=== PATIENT | male | born 1965 | race Caucasian/White ===

== ENCOUNTER 2018-06-28 11:22 | Emergency (ER) | payer BC ==
[2018-06-28] MEDS ORDERED: RAPID SEQUENCE INTUBATION KIT NR ONE (11:26)
[2018-06-28] MEDS ORDERED: KETAMINE HCL 200 MG/20 ML VIAL ONE (11:27)
[2018-06-28] MEDS ORDERED: ROCURONIUM BROMIDE 50 MG/5 ML VIAL IV ONE (11:28)
[2018-06-28] MEDS ORDERED: KETAMINE HCL 200 MG/20 ML VIAL IVPUSH ONE (11:28)
[2018-06-28] MEDS ORDERED: AMIODARONE HCL 150 MG/3 ML VIAL ONE ×2 (11:34→11:37)
[2018-06-28] MEDS ORDERED: HEPARIN NA (PORCINE) 5,000 UNITS/ML 1ML VIAL IVPUSH ONE (11:35)
[2018-06-28] MEDS ORDERED: ASPIRIN 300 MG SUPP.RECT PR ONE (11:35)
[2018-06-28] MEDS ORDERED: ASPIRIN 300 MG SUPP.RECT RC ONE (11:35)
[2018-06-28] MEDS ORDERED: HEPARIN INFUSION - 25,000 UNITS/500 ML INFUS.BAG IVPB ONE (11:35)
[2018-06-28] MEDS ORDERED: HEPARIN NA (PORCINE) 5,000 UNITS/ML 1ML VIAL ONE (11:35)
[2018-06-28] MEDS ORDERED: AMIODARONE HCL 150 MG/3 ML VIAL IVPUSH ONE (11:35)
[2018-06-28 11:47] LABS: BASO % 0.5 % (0-2.0); EOS % 0.3 % (0-4.5); HEMATOCRIT 46.2 % (35.4-49); HEMOGLOBIN 15.5 GM/dL (11.7-16.9); LYMPH % 13.8 % (8-40); MCH 29.7 pg (25.7-33.7); MCHC 33.6 g/dl (32.0-35.9); MEAN CELL VOLUME 88.4 fl (80-96); MEAN PLT VOLUME 9.5 fl (7.5-11.1); MONO % 3.6 % (3.8-10.2); NEUT % 81.8 % (42.8-82.8); PLATELET COUNT 243 K/MM3 (134-434); RBC 5.22 M/mm3 (4.00-5.60); RDW 13.5 % (11.9-15.9); WHITE BLOOD COUNT 12.1 K/mm3 (4.0-10.0)
--- NOTE | 2018-06-28 11:48 | PDOC ---
History of Present Illness - General Stated Complaint: Cardiac Arrest History Source: EMS Exam Limitations: Clinical Condition - History of Present Illness Initial Comments: 06/28/18 12:18 Mr Gregg is a 52 -year-old male with a history of hypertension and hyperlipidemia. He presented to the urgent care across the street from the hospital with a complaint of nasal congestion and cough that began approximately one week ago. He states to the urgent care that he felt like he got better but his chest felt very congested. This morning he started to have coughing spasms and after coughing he developed chest pain. He stated after developing chest pain he became very sweaty, felt nauseous. Pt took Asa x 2 this am Patient had an EKG at 10:52 AM which demonstrates INFERIOR WALL STEMI EMS called by Urgent care Pt sent to the ER for ACS eval Pt became unresponsive en route to the ER, found to be pulseless CPR immediately initiated. Initial rhythm was V. tach, patient shocked with 100 J. Patient regained a pulse, was then noted to be in v tach, shocked again Pt noted to be asystolic, compressions resumed Patient brought into the emergency departments at 11:15. Patient noted to be in V. tach, no pulse, shocked with 200 J Compressions resumed. Pt noted to be in V. fib at 11:18, shocked at 200 J. Compressions resumed. Epi at 11:20am Pt noted to be in Vfib at 11:22, shocked at 200 J, compressions resumed Amiodarone 300mg IV push Amiodarone drip started Pt noted to be in Vfib at 11:25, shocked at 200 J. Compressions resumed Rhythm check 11:26, pt noted to be sinus bradycardia. (+) ROSC. Atropine given Pt noted to be moving arms and legs Pt sat up in bed, moving all extremities Ketamine and Gino given Intubated at 11:29am by Dr Hdez and Dr. Aparna HANSON called at 11:28 EKG and Urgent Care physical faxed Case discussed with ENRIQUE Fentanyl 100mcg given at 11:32am Rectal ASA Repeat EKG 11:35am STEMI, lateral q waves noted NS bolus started Heparin 5000 Unit Bolus given 11:35 Heparin drip started Dopamine initiated via right tibial IO FS: 163 at 11:40am IO placed in Right Tib Fib for Dopamine infusion Pt bradycardiac at 11:45 am to 20s Will give Atropine at 11:46, Epinephrine with improvement in Heart rate Received call back from Gina NUNEZ - accepted by Dr Madrigal [facility] in place to transfer Transferred to EMS stretcher 12:00 Fentanyl drip started at 12:01 pm Rectal temp 11:54am - 97.6 Pt moving Given Versed 5mg IV Left ER at 12:06pm PMH: Hypertension, hyperlipidemia PSH: Appendectomy ALLERGIES: NKDA Medications: Benicar, Crestor Social: Retired hand former, current smoker. Review of systems is limited given patient's condition GENERAL: The patient is in critically in no acute distress. HEAD: Normal with no signs of trauma. EYES: pupils 2mm bilaterally, fixed ENT: Ears normal, nares patent, oropharynx clear without exudates. Moist mucous membranes. NECK: Normal range of motion, supple LUNGS: No active respiratory effort, bilateral breath s/p intubation HEART: Regular rate and rhythm s/p ROSC ABDOMEN: Soft, not distended EXTREMITIES: No deformities, no edema NEUROLOGICAL: Pt sat up at one point and moved ALL extremities prior to intubation SKIN: Warm, Dry, normal turgor, no rashes or lesions noted. Past History - Past Medical History Allergies/Adverse Reactions: Allergies Allergy/AdvReac Type Severity Reaction Status Date / Time niacin AdvReac Intermediate Verified 06/28/18 12:03 [From [facility] Extended-Release] Home Medications: Ambulatory Orders Olmesartan Medoxomil [Benicar] 20 mg PO DAILY 04/20/12 Aspirin [ASA -] 81 mg PO DAILY 06/03/13 Rosuvastatin Calcium [Crestor] 20 mg PO HS 09/11/13 Anemia: No Asthma: No Cancer: No CHF: No Dementia: No Diabetes: No Disorders: No HTN: Yes Hypercholesterolemia: Yes Thyroid Disease: No - Surgical History Appendectomy: Yes Orthopedic Surgery: Yes (ARTHROSCOPY MINISCU BILATERAL) - Immunization History Td Vaccination: Yes Immunization Up to Date: No - Suicide/Smoking/Psychosocial Hx Smoking Status: Yes Smoking History: Current every day smoker Have you smoked in the past 12 months: Yes Number of Cigarettes Smoked Daily: 10 'Breaking Loose' booklet given: 06/26/14 Hx Alcohol Use: No Drug/Substance Use Hx: No Substance Use Type: None ED Treatment Course - LABORATORY CBC & Chemistry Diagram: 06/28/18 11:40 06/28/18 11:40 - ADDITIONAL ORDERS Additional order review: 06/28/18 11:40 RBC 5.22 MCV 88.4 MCHC 33.6 RDW 13.5 MPV 9.5 Neutrophils % 81.8 Lymphocytes % 13.8 Monocytes % 3.6 L Eosinophils % 0.3 Basophils % 0.5 Medical Decision Making - Critical Care Time Total Critical Care Time (minutes): 50 Critical Care Statement: The care of this patient involved high complexity decision making to prevent further life threatening deterioration of the patient 's condition and/or to evaluate & treat vital organ system(s) failure or risk of failure. - Medical Decision Making 06/28/18 13:04 CARDIAC ARREST S/P ROSC EKG PRE CARDIAC ARREST INFERIOR WALL STEMI ACCEPTED TO [facility] EM[facility] TRANSFER TO [facility] PT IS CRITICALLY ILL , FATHER IN LAW, FRIEND UPDATED ON PT STATUS THIS PATIENT IS CRITICALLY ILL 06/28/18 13:19 *DC/Admit/Observation/Transfer Diagnosis at time of Disposition: STEMI (ST elevation myocardial infarction) Qualifiers: Involved coronary artery: right coronary artery Qualified Code(s): I21.11 - ST elevation (STEMI) myocardial infarction involving right coronary artery - Discharge Dispostion Disposition: TRANSFER ACUTE CARE/OTHER HOSP Condition at time of disposition: Guarded Decision to Admit order: No - Referrals Referrals: Adolfo Maciel MD [Primary Care Provider] - - Patient Instructions - Post Discharge Activity - Transfer to Acute Care Facility Receiving Facility: [facility]
[2018-06-28] MEDS ORDERED: EPINEPHrine 1:10,000 (P-F SYR) 1 MG/10 ML DISP.SYRIN IVPUSH ONE (11:49)
[2018-06-28] MEDS ORDERED: fentaNYL CITRATE 250 MCG/5 ML VIAL ONE (12:00)
[2018-06-28] MEDS ORDERED: FENTANYL INJECTION 500 MCG in DEXTROSE 5%-WATER - 90 ML IVPB SCH (12:01)
[2018-06-28] MEDS ORDERED: MIDAZOLAM HCL 2 MG/2 ML SINGLE DOSE VIAL ONE (12:02)
[2018-06-28] MEDS ORDERED: MIDAZOLAM HCL 5 MG/1 ML Single Dose Vial IVPUSH ONE (12:02)
[2018-06-28 12:04] VITALS: TEMP 97.6; BMI 19.5
[2018-06-28 12:04] LABS: INR 1.03 (0.83-1.09); PROTHROMBIN TIME (PATIENT) 12.1 SEC (9.7-13.0)
[2018-06-28 12:40] LABS: ALK PHOS 47 U/L (45-117); ANION GAP 11 MMOL/L (8-16); BILIRUBIN,TOTAL 0.4 mg/dL (0.2-1); BLOOD UREA NITROGEN 9 mg/dL (7-18); CALCIUM 9.5 mg/dL (8.5-10.1); CHLORIDE 105 mmol/L (98-107); CO2 24 mmol/L (21-32); GLUCOSE,RANDOM 111 mg/dL (74-106); MAGNESIUM 2.2 mg/dL (1.8-2.4); PHOSPHOROUS 2.6 mg/dL (2.5-4.9); POTASSIUM 4.1 mmol/L (3.5-5.1); SGOT/AST 21 U/L (15-37); SGPT/ALT 35 U/L (13-61); SODIUM 140 mmol/L (136-145); TOT PROT 7.1 g/dl (6.4-8.2)
[2018-06-28] MEDS ORDERED: DEXTROSE 5% IV ONE (13:15)
[2018-06-28] MEDS ORDERED: AMIODARONE HCL IV ONE (13:15)
[2018-06-28] MEDS ORDERED: NORMAL SALINE IV ONE (13:15)
[2018-06-28] MEDS ORDERED: HEPARIN - 25,000 UNIT in SODIUM CHLORIDE 495 ML IV SCH (13:15)
[2018-06-28 13:38] VITALS: BP 178/140; PULSE 77
[2018-06-28] MEDS ORDERED: ATROPINE SULFATE 1 MG/10 ML DISP.SYRIN IVPUSH ONE (13:53)
--- NOTE | 2018-06-28 15:44 | EKG ---
Test Reason : Blood Pressure : / mmHG Vent. Rate : 074 BPM Atrial Rate : 078 BPM P-R Int : 000 ms QRS Dur : 098 ms QT Int : 328 ms P-R-T Axes : 000 118 065 degrees QTc Int : 364 ms ACCELERATED JUNCTIONAL RHYTHM ANTEROLATERAL INFARCT (CITED ON OR BEFORE 11-SEP-2013) INFERIOR INJURY PATTERN ACUTE DE / STEMI Consider right ventricular involvement in acute inferior infarct ABNORMAL ECG SIGNIFICANT CHANGES HAVE OCCURRED Confirmed by MAXIMILIAN MCINTYRE, MATT ([id number]) on 06/28/2018 3:43:41 PM Referred By: Confirmed By:MATT YAO MD
== END 2018-06-28 12:10 | disposition short-term general hospital (02) ==
LOC: JER 11:22
PROC: 3E033GC Introduction of Other Therapeutic Substance into Peripheral Vein, Percutaneous Approach (ICD-10-PCS; principal; 2018-06-28)
PROC: 3E033NZ Introduction of Analgesics, Hypnotics, Sedatives into Peripheral Vein, Percutaneous Approach (ICD-10-PCS; 2018-06-28)
DX: I21.11 ST elevation (STEMI) myocardial infarction involving right coronary artery (principal); I10 Essential (primary) hypertension; E78.5 Hyperlipidemia, unspecified
CPT/HCPCS: 36415; 80053; 82550; 82962; 83605; 83735; 84100; 84484; 85025; 85610; 85730; 93005; 93010; 99285-25; J1644